=== PATIENT | male | born 1955 | race Caucasian/White ===

== ENCOUNTER → 2016-09-18 12:56 | Day surgery (SDC) | payer BC ==
[~2016-09-18 12:56] MED LIST: Buffered Lidocaine 1% SYRIN* 3 ML/SYR SYRINGE INTRADERM ONE; Bupivacaine 0.25% W/EPI* 50 ML VIAL ONE; Bupivacaine 0.5% W/EPI SDV* 30 ML VIAL ONE; Dexamethasone IV* 4 MG/ML 1 ML (4 MG) IV SLOW PU ONE; Dexamethasone IV* 4 MG/ML 1 ML (4 MG) ONE; DiMENhydriNATE IV* 50 MG/ML VIAL IV PUSH PRN; Famotidine IV* 10 MG/ML 2 ML (20 mg) IV ONE; Famotidine IV* 10 MG/ML 2 ML (20 mg) ONE; Glycopyrrolate IV* 0.2 MG/ML 1 ML VIAL ONE; KETAMINE HCL* 50 MG/ML 10 ML VIAL ONE; Ketorolac INJ* 30 MG/ML 1 ML VIAL ONE; Lidocaine 2% PF* 5 ML VIAL ONE; Midazolam* 1 MG/ML 2 ML VIAL (2 MG) ONE; Neostigmine Methylsulfate* 2 MG/2 ML SYRINGE ONE; Ondansetron INJ* 2 MG/ML VIAL ONE; Propofol* 10 MG/ML 20 ML BTL IV PUSH ONE; Succinylcholine* 20 MG/ML 10 ML VIAL ONE; ceFAZolin 2 GM PREMIX(*) 2 GM/50 ML BAG IVPB ONE; fentaNYL* 50 MCG/ML 2 ML VIAL (100 MCG VIAL) IV PRN; fentaNYL* 50 MCG/ML 2 ML VIAL (100 MCG VIAL) ONE; oxyCODONE/Acetamin 5/325 MG* TAB ONE; oxyCODONE/Acetamin 5/325 MG* TAB PO PRN
[2016-09-18 18:03] VITALS: BP 137/81
--- NOTE | 2016-09-19 14:43 | OP ---
OPERATIVE REPORT: DATE OF OPERATION: 09/18/16 - SDS DATE OF : 59 SURGEON: Cosmo Hernández MD MATERIALS SCIENTIST: DIOR Ortega ANESTHESIOLOGIST: Janak Khan MD ANESTHESIA: General endotracheal. PRE-OP DIAGNOSIS: Symptomatic gallstones. POST-OP DIAGNOSES: Symptomatic gallstones and intraperitoneal adhesions. OPERATIVE PROCEDURE: Laparoscopic cholecystectomy and laparoscopic lysis of adhesions. ESTIMATED BLOOD LOSS: Minimal. IV FLUIDS: Crystalloid. SPECIMEN: Gallbladder contents. DRAINS: None. COMPLICATIONS: None. INSTRUMENT: The instrument, needle, and sponge counts were correct. DESCRIPTION OF PROCEDURE: The patient was brought to the operating room and placed on the table supine. Sequential compression devices were placed on both lower extremities and general anesthesia was administered. The abdomen was prepped and draped in the usual sterile fashion. Time-out was performed. Local anesthetic was infiltrated into the skin and soft tissue prior to making each incision. Entry into the abdomen was through a transumbilical incision using an open technique and after placing a 5-mm optical trocar, carbon dioxide was insufflated to a pressure of 15 mmHg. There were noted to be numerous adhesions in the immediate vicinity and therefore the incision was enlarged to accommodate a 12-mm optical trocar. Additional blunt dissection was performed with the finger prior to placing the trocar. Inspection of the laparoscope revealed adhesions surrounding the periumbilical incision with denser omental adhesions. There was a clear area in the left upper quadrant and I was able to place a 5-mm trocar in this location and then utilizing this with a scope, I was able to traverse beneath the falciform ligament and in the right upper quadrant the abdomen, was free of adhesions. The wall of adhesions was in the right lower quadrant. Under direct visualization, a second 5-mm trocar was placed in right upper quadrant just off the midline and then a third 5-mm trocar was placed in the right upper quadrant laterally. At this point, adhesiolysis was performed using sharp and blunt dissection working back towards the umbilical site to free this area of adhesions and allow the 12-mm port to be utilized as the camera and the instrument port. The initial 5-mm trocar was then moved from the left upper quadrant to the right upper quadrant for a standard 4-port cholecystectomy. The gallbladder appeared to be chronically inflamed with numerous adhesions of omentum to it and there was a dense peel around the gallbladder which was bluntly dissected free. There were numerous gallstones noted within the gallbladder and these were mobile. The dissection proceeded by grabbing the fundus and retracting it superiorly and then incising the peritoneum on the medial and lateral aspects of the gallbladder in order to dissect out the infundibulum and there were dense adhesions around the area of the infundibular cystic duct junction. The cystic artery was identified and was densely adherent in this area but was able to be elevated, was doubly clipped and divided. During dissection, cholecystotomy was inadvertently made and there was clear bile within the gallbladder, which was aspirated. The gallstones were retrieved using a 10-mm spoon biopsy forceps and using the endoscopic suction. The gallbladder was dissected free from its attachments in the liver bed in a retrograde fashion and ultimately the gallbladder was divided at the end of the infundibulum where the adhesions were noted to be dense as previously described. The gallbladder once freed was placed to a retrieval bag and retrieved through the umbilical port site. Inspection of the cystic duct/ stump of the infundibulum revealed they were few stones that were able to be extruded and removed. A 0 Polysorb Surgitie was used to ligate the cystic duct stump. Copious lavage was performed with 3 L of saline until clear. There were small bleeding vessels on the lesser omentum, which were clipped. After assuring hemostasis, the ports were removed and carbon dioxide was released. The umbilical wound was closed with 0 Polysorb in figure-of-8 fashion to approximate the fascia. The skin incisions were closed with 4-0 Monocryl in a subcuticular fashion and Steri-Strips were applied. The patient was awakened uneventfully and he was transferred to the recovery room in a stable condition. CC: kO Claudio NP* [id number]/[facility] #: [id number] LAINE
== END | disposition home or self-care (01) ==
LOC: OR 12:56
PROVIDERS: ATTEND Surgery
DX: K80.12 Calculus of gallbladder with acute and chronic cholecystitis without obstruction (principal); K66.0 Peritoneal adhesions (postprocedural) (postinfection); I10 Essential (primary) hypertension; Z68.32 Body mass index [BMI] 32.0-32.9, adult; K76.0 Fatty (change of) liver, not elsewhere classified
CPT/HCPCS: 88304; A9270-GY; C1776; J0330; J0690; J1100; J1885; J2250; J2405; J2704; J3010